=== PATIENT | female | born 1990 | race Two or more races ===

== ENCOUNTER 2024-06-01 10:38 | Outpatient (CLI) | payer OTHER | END 2024-06-01 10:40 | disposition home or self-care (01) | LOC: PRENATAL 10:38 | PROVIDERS: ATTEND Obstetrics & Gynecology Maternal & Fetal Medicine | DX: O44.00 Complete placenta previa NOS or without hemorrhage, unspecified trimester (principal); O09.519 Supervision of elderly primigravida, unspecified trimester; Z3A.21 21 weeks gestation of pregnancy ==

== ENCOUNTER → 2024-08-21 09:15 | Outpatient (CLI) | payer OTHER | END | disposition home or self-care (01) | LOC: PRENATAL 09:15 | PROVIDERS: ATTEND Obstetrics & Gynecology Maternal & Fetal Medicine | DX: O26.849 Uterine size-date discrepancy, unspecified trimester (principal); O36.8199 Decreased fetal movements, unspecified trimester, other fetus; O09.519 Supervision of elderly primigravida, unspecified trimester; Z3A.32 32 weeks gestation of pregnancy ==

== ENCOUNTER 2024-10-11 07:22 | Inpatient (IN) | payer OTHER ==
[2024-10-11] VITALS (9 sets, daily range): BP systolic 100–149; BP diastolic 54–85
[~2024-10-11] VITALS: Ht 152.4 cm; Wt 73.9 kg
[2024-10-11] MEDS ORDERED: OXYTOCIN 500 ML IV SCH (07:30)
[2024-10-11] MEDS ORDERED: PRENATABS RX T1 EACH PO (08:32)
[2024-10-11 08:38] LABS: BASO % 0.2 % (0.1-1.2); EOS # 0.03 (0.04-0.54); EOS % 0.4 % (0.7-7.0); HEMATOCRIT 30.9 % (34.1-44.9); HEMOGLOBIN 10.4 g/dL (11.2-15.7); MEAN CORPUSCULAR HEMOGLOBIN 29.4 pg (25.6-32.2); MONO # 0.57 (0.24-0.82); MONO % 6.8 % (4.7-12.5); NEUT # 5.61 (1.56-6.13); NEUT % 66.9 % (34.0-71.1); PLATELET COUNT 273 K/uL (163-369); RED BLOOD COUNT 3.54 M/uL (3.93-5.22); RED CELL DISTRIBUTION WIDTH 14.4 % (11.6-14.4)
[2024-10-11 09:14] LABS: INR < 0.93; PARTIAL THROMBOPLASTIN TIME 25.9 SECONDS (22.0-34.0); PROTHROMBIN TIME 10.2 SECONDS (9.0-11.5)
[2024-10-11 09:21] LABS: ALBUMIN 2.7 gm/dL (3.4-5.0); BILIRUBIN TOTAL 0.27 mg/dL (0.3-1.2); CALCIUM 8.9 mg/dL (8.5-10.1); CREATININE SERUM 0.74 mg/dL (0.55-1.02); GFR 89.31; GLOBULINA 3.4 G/DL (2.4-3.5); POTASSIUM 4.18 mEq/L (3.5-5.1); TOTAL PROTEIN 6.1 gm/dL (6.4-8.2)
[2024-10-11] MEDS ORDERED: CHLORHEXIDINE GLUCONATE 120 ML BOTTLE TOP ONE ×2 (14:31→17:30)
[2024-10-11] MEDS ORDERED: OXYTOCIN 20 UNITS/1000ML RL PIGGYBAG IV ONE (14:31)
[2024-10-11] MEDS ORDERED: ERYTHROMYCIN BASE OPHT 1GM EACH TUBE OP ONE ×2 (14:31→18:00)
[2024-10-11] MEDS ORDERED: LIDOCAINE HCL 1% 10ML VIAL ONE (14:32)
[2024-10-11] MEDS ORDERED: IBUprofen 400 MG TABLET PO PRN (17:30)
[2024-10-11] MEDS ORDERED: OXYTOCIN 1,000 ML IV SCH (17:30)
[2024-10-11] MEDS ORDERED: LIDOCAINE HCL 1% 10ML VIAL IJ ONE (18:00)
[2024-10-12 01:03] VITALS: BP 109/75
[2024-10-12 09:38] VITALS: BP 113/68
[2024-10-12] MEDS ORDERED: BENZOCAINE/MENTHOL 90 ML BOTTLE TOP SCH ×2 (10:00→12:00)
[2024-10-12 16:27] VITALS: BP 95/62
[2024-10-13 01:27] VITALS: BP 102/69
[2024-10-13 08:00] VITALS: BP 110/71
[2024-10-13] MEDS ORDERED: NAPROXEN500 MG PO (08:59)
[2024-10-13] MEDS ORDERED: COLACE100 MG PO (09:00)
== END 2024-10-13 15:10 | disposition home or self-care (01) | DRG 807 ==
LOC: LDR 07:22 → OB/GYN 18:03
PROVIDERS: ADMIT Obstetrics & Gynecology; ATTEND Obstetrics & Gynecology
PROC: 10E0XZZ Delivery of Products of Conception, External Approach (ICD-10-PCS; principal; 2024-10-11)
PROC: 0KQM0ZZ Repair Perineum Muscle, Open Approach (ICD-10-PCS; 2024-10-11)
PROC: 4A1HXCZ Monitoring of Products of Conception, Cardiac Rate, External Approach (ICD-10-PCS; 2024-10-11)
DX: O70.1 Second degree perineal laceration during delivery (principal); Z37.0 Single live birth; O69.81X0 Labor and delivery complicated by cord around neck, without compression, not applicable or unspecified; Z3A.39 39 weeks gestation of pregnancy